=== PATIENT | female | born 1980 | race Caucasian/White ===

== ENCOUNTER 2020-06-24 12:02 | Observation (INO) | payer OTHER ==
[~2020-06-24] VITALS: Ht 162.6 cm; Wt 61.2 kg
[2020-06-24 13:08] LABS: BASOPHILS % 0.4 % (0.0-1.0); EOSINOPHILS % 0.4 % (0.0-6.0); HEMATOCRIT 37.7 % (34.2-44.1); HEMOGLOBIN 12.6 g/dL (12.0-16.0); LYMPHOCYTES # (AUTO) 3.1 (1.0-3.2); LYMPHOCYTES % 27.7 % (18.0-39.1); MEAN CORPUSCULAR HEMOGLOBIN 26.9 pg (28-32); MEAN CORPUSCULAR HGB CONC 33.4 g/dL (31-35); MEAN CORPUSCULAR VOLUME 80.6 fL (81-99); MONOCYTES # (AUTO) 0.6 (0.2-0.8); MONOCYTES % 5.4 % (4.4-11.3); NEUTROPHILS # (AUTO) 7.4 (2.1-6.9); NEUTROPHILS % 65.7 % (38.7-80.0); PLATELET COUNT 251 x10e3/uL (140-360); RED BLOOD COUNT 4.68 x10e6/uL (3.6-5.1); RED CELL DISTRIBUTION WIDTH 13.7 % (11.7-14.4)
[2020-06-24 13:27] LABS: ALBUMIN 4.7 g/dL (3.5-5.0); ALBUMIN/GLOBULIN RATIO 1.7 (0.8-2.0); ALKALINE PHOSPHATASE 61 IU/L (40-150); ANION GAP 16.4 mmol/L (8-16); BLOOD UREA NITROGEN 10 mg/dL (7-26); BUN/CREATININE RATIO 12 (6-25); CARBON DIOXIDE 21 mmol/L (22-29); CHLORIDE 103 mmol/L (98-107); CREATININE, SERUM 0.86 mg/dL (0.57-1.11); EST GLOMERULAR FILTRATION RATE > 60 ML/MIN (60-); GLUCOSE 87 mg/dL (74-118); POTASSIUM 3.4 mmol/L (3.5-5.1); SODIUM 137 mmol/L (136-145)
[2020-06-24 13:29] LABS: ALANINE AMINOTRANSFERASE < 6 IU/L (0-55)
--- NOTE | 2020-06-24 14:09 | Diagnostic Imaging Report ---
Exam: Head CT without contrast History: Left-sided neck and arm pain. Comparison studies: None Technique: Axial images were obtained from the skull base to the vertex. Coronal and sagittal images reconstructed from the axial data. Dose modulation, iterative reconstruction, and/or weight based adjustment of the mA/kV was utilized to reduce the radiation dose to as low as reasonably achievable. Radiation dose: Total DLP: 1060 1. mGy*cm. Estimated effective dose: DLP x 0.015 Intravenous contrast: None Findings: Scalp: No abnormalities. Bones: No fractures, blastic or lytic lesions. Brain sulci: Appropriate for age. Ventricles: Normal in size and configuration. No hydrocephalus. Extra-axial spaces: No masses, no fluid collection. Parenchyma: No mass, acute hemorrhage or acute cortical insult. Small chronic insults are present in the right cerebellum. Sellar/suprasellar region: No abnormalities. Craniocervical junction: Patent foramen magnum. No Chiari one malformation. IMPRESSION: 1. No acute intracranial abnormalities. 2. Small chronic right cerebellar insults. Signed by: Dr. Raoul Finch M.D. on 06/24/2020 2:06 PM
--- NOTE | 2020-06-24 14:20 | Diagnostic Imaging Report ---
History: Left-sided neck and arm pain Comparison studies: None Technique: Axial, coronal and sagittal images from the skull base to the thoracic inlet. Coronal and sagittal images reconstructed from the axial data. Dose modulation, iterative reconstruction, and/or weight based adjustment of the mA/kV was utilized to reduce the radiation dose to as low as reasonably achievable. Intravenous contrast: 100 cc of Isovue-370. Findings: Soft tissues: Mild nonspecific fat-stranding present in the left upper back/lower neck superficial to the left trapezius muscle. No mass or fluid collection. Upper aerodigestive tract: No abnormalities. Specifically, no mass or fluid collection. Lymph nodes: No radiographically significant adenopathy. Vessels: Arteries and veins are patent. Glands (parotid and submandibular): Normal in size and symmetric. No masses. Thyroid gland: Subcentimeter left inferior thyroid lobe nodule or cyst for which no further workup is necessary per current JACR recommendations for incidental thyroid nodules. No other abnormalities. Nasal sinuses: Clear aside from a mild mucosal thickening within a nondominant right sphenoid sinus. Orbits: No abnormalities. Temporal bones: No gross abnormalities. Skull base and facial bones: Intact. Cervical spine: Mildly degenerated C5-C6 disc. Moderate foraminal stenosis on the right at C3-C4 due to uncovertebral arthrosis and severe right facet arthrosis. Incidental findings: Multiple absent teeth with multiple dental caries and multifocal periodontal disease. IMPRESSION: 1. Mild reactive changes in the superficial subcutaneous soft tissues in the left upper back/lower neck which may reflect cellulitis in the appropriate clinical context. No mass or abscess. 2. No other acute abnormalities. Signed by: Dr. Raoul Finch M.D. on 06/24/2020 2:17 PM
[2020-06-24] MEDS ORDERED: ONDANSETRON HCL INJ 2MG/ML 2ML 2 MG/ML VIAL IV STA (14:56)
[2020-06-24] MEDS ORDERED: MORPHINE SULFATE INJ 4 MG/ML INJ 1ML IV PRN (15:00)
[2020-06-24] MEDS ORDERED: CEFEPIME 1GM/NS 0.9% 50 ML 50 ML IV STA (15:15)
[2020-06-24 15:16] LABS: BILIRUBIN,URINE NEGATIVE (NEGATIVE); CLARITY,URINE HAZY (CLEAR); COLOR,URINE YELLOW (YELLOW); KETONES,URINE NEGATIVE (NEGATIVE); LEUKOCYTE ESTERASE ,URINE SMALL (NEGATIVE); NITRITE,URINE POSITIVE (NEGATIVE); PREGNANCY TEST, URINE NEGATIVE (NEGATIVE); PROTEIN,URINE DIPSTICK NEGATIVE (NEGATIVE); URINE UROBILINOGEN 0.2 mg/dL (0.2 - 1)
[2020-06-24 15:24] LABS: BACTERIA,URINE MANY /HPF; EPITHELIAL CELLS,URINE MODERATE /LPF; RENAL EPITHELIAL CELLS,URINE RARE
--- OUTSIDE RECORDS SUMMARY | 2020-06-24 15:25 | XMS REPORT | Continuity of Care Document ---
Author Author [facility] t Organization [facility] Address [address] [place] [address] Phone Unavailable Care Team Providers Care Station Engineer Name Role Phone Marlene Lemus MD PCP Ranjit RAMIREZ Attphys Unavailable Doctor Unassigned, Name No Attphys Unavailable Problems This patient has no known problems. Allergies, Adverse Reactions, Alerts Allergy Name Allergy Type Status Severity Reaction(s) Onset Date Inacti ve Date Treating Clinician Comments Source Sumatriptan Succinate Propensity to adverse reactions to drug Active 2018-05-06 00:00:00 Tom Meth odist Dalton Propensity to adverse reactions to drug Active 2018-05-06 00:00:00 Tom sanchez Social History Social Habit Start Date Stop Date Quantity Comments Source Sex Assigned At [facility] Alcohol intake 2019 00:00:00 2019 00:00:00 Current non-drinker of alcohol (finding) Tom Austin Smoking Status Start Date Stop Date Source Never smoker Tom sanchez Medications Ordered Medication Name Filled Medication Name Start Date Stop Da te Current Medication? Ordering Clinician Indication Dosage Frequency Signature (SIG) Comments Components Source meloxicam (MOBIC) 15 mg tablet 2018-05-06 00:00:00 Yes 15mg Q24H Take 1 tablet (15 mg total) by mouth daily as needed for mild pain for up to 10 doses. Tom Austin GABAPENTIN ORAL 2017-10-24 14:17:41 Yes Take by mouth. Tom Austin LITHIUM CITRATE ORAL 2017-10-24 14:17:41 Yes Take by mouth. Tom Austin AMITRIPTYLINE HCL (AMITRIPTYLINE ORAL) 2017-07-17 17:35:13 Yes Take by mouth. Tom Austin TRAMADOL HCL (TRAMADOL ORAL) 2017-07-17 17:35:13 Yes Take by mouth. Tom Austin bzauptybrv-pxllooqkrcnrf-jout (ESGIC) 50-325-40 mg per table t 2017-07-17 00:00:00 Yes 1{tbl} Q4H Take 1 tab let by mouth every 4 (four) hours as needed for headaches for up to 15 doses. Tom Austin metoclopramide (REGLAN) 5 MG tablet 2017-07-17 00:00:00 Yes 5mg Q6H Take 1 tablet (5 mg total) by mouth every 6 (six) hours as needed (Nausea/vomiting) for up to 15 doses. Tom Austin Procedures This patient has no known procedures. Plan of Care Planned Activity Planned Date Details Comments Source Future Scheduled Test 2020-07-22 00:00:00 INFLUENZA VACCINE [code = INFLUENZA VACCINE] Tom Austin Future Scheduled Test 2000-01-21 00:00:00 Screening for contreras gnant neoplasm of cervix (procedure) [code = 827770913] Tom sanchez Encounters Start Date/Time End Date/Time Encounter Type Admission Type [facility] Care Department Encounter ID Source 2020-06-14 00:00:00 2020-06-14 00:00:00 Refill Doctor Unassigned, [place] [facility] [id number] Results Test Description Test Time Test Comments Results Result Comments Source CT SOFT TISSUE NECK W 2020-06-24 14:07:00 [facility] [address] [place], [place] [address] Patient Name: MARLENE ALMANZA MR #: [id number] : 1980 Age/Sex: 40/F Req #: [id number] Adm Physician: Ordered by: FLOYD RAMIREZ DO Report #: [id number] Location: ER Room/Bed: Procedure: [id number] CT/CT SOFT TISSUE NECK W Exam Date: 06/24/20 Exam Time: 1340 REPORT STATUS: Signed History: Left-sided neck and arm pain Comparison studies: None Technique: Axial, coronal and sagittal images from the skull base to the thoracic inlet. Coronal and sagittal images reconstructed from the axial data. Dose modulation, iterative reconstruction, and/or weight based adjustment of the mA/kV was utilized to reduce the radiation dose to as low as reasonably achievable. Intravenous contrast: 100 cc of Isovue-370. Findings: Soft tissues: Mild nonspecific fat- stranding present in the left upper back/lower neck superficial to the left trapezius muscle. No mass or fluid collection. Upper aerodigestive tract: No abnormalities. Specifically, no mass or fluid collection. Lymph nodes: No radiographically significant adenopathy. Vessels: Arteries and veins are patent. Glands (parotid and submandibular): Normal in size and symmetric. No masses. Thyroid gland: Subcentimeter left inferior thyroid lobe nodule or cyst for which no further workup is necessary per current JACR recommendations for incidental thyroid nodules. No other abnormalities. Nasal sinuses: Clear aside from a mild mucosal thickening within a nondominant right sphenoid sinus. Orbits: No abnormalities. Temporal bones: No gross abnormalities. Skull base and facial bones: Intact. Cervical spine: Mildly degenerated C5-C6 disc. Moderate foraminal stenosis on the right at C3-C4 due to uncovertebral arthrosis and severe right facet arthrosis. Incidental findings: Multiple absent teeth with multiple dental caries and multifocal periodontal disease. IMPRESSION: 1. Mild reactive changes in the superficial subcutaneous soft tissues in the left upper back/lower neck which may reflect cellulitis in the appropriate clinical context. No mass or abscess. 2. No other acute abnormalities. Signed by: Dr. Demetris Finch M.D. on 06/24/2020 2:17 PM Dictated By: DEMETRIS FINCH MD 16 Transcribed By: JAYESH on 06/24/201416 COPY TO: FLOYD RAMIREZ DO CT BRAIN WO 2020-06-24 14:01:00 [facility] [address] [place] [address] Patient Name: MARLENE ALMANZA MR #: [id number] : 1980 Age/Sex: 40/F Req #: [id number] Adm Physician: Ordered by: FLOYD RAMIREZ DO Report #: [id number] Location: ER Room/Bed: Procedure: [id number] CT/CT BRAIN WO Exam Date: 06/24/20 Exam Time: 1340 REPORT STATUS: Signed Exam: Head CT without contrast History: Left- sided neck and arm pain. Comparison studies: None Technique: Axial images were obtained from the skull base to the vertex. Coronal and sagittal images reconstructed from the axial data. Dose modulation, iterative reconstruction, and/or weight based adjustment of the mA/kV was utilized to reduce the radiation dose to as low as reasonably achievable. Radiation dose: Total DLP: 1060 1. mGy*cm. Estimated effective dose: DLP x 0.015 Intravenous contrast: None Findings: Scalp: No abnormalities. Bones: No fractures, blastic or lytic lesions. Brain sulci: Appropriate for age. Ventricles: Normal in size and configuration. No hydrocephalus. Extra-axial spaces: No masses, no fluid collection. Parenchyma: No mass, acute hemorrhage or acute cortical insult. Small chronic insults are present in the right cerebellum. Sellar/suprasellar region: No abnormalities. Craniocervical junction: Patent foramen magnum. No Chiari one malformation. IMPRESSION: 1. No acute intracranial abnormalities. 2. Small chronic right cerebellar insults. Signed by: Dr. Demetris Finch M.D. on 06/24/2020 2:06 PM Dictated By: DEMETRIS FINCH MD 05 Transcribed By: JAYESH on 06/24/201405 COPY TO: FLOYD RAMIREZ DO
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
--- NOTE | 2020-06-24 15:37 | Emergency Department Note ---
History of Present Illnes History of Present Illness Chief Complaint: General Medicine Complaints History of Present Illness This is a 40 year old female arrived to the ED with complaints of pain over posterior right neck down her arm. Chief Complaint Comment X 4 DAYS, CONTINUOUS BURNING PAIN TO LEFT SIDE BASE OF HEAD, UPPER LEFT BACK AND DOWN ENTIRE ARM SCHEDULED WITH FOR FULL BODY SCAN ON Jun.29 AND THE WITH NEUROLOGIST Historian: Patient Arrival Mode: Car Additional Treatment PBX SUPERVISOR: NONE Onset (how long ago): day(s) Radiation: Reports non-radiation Severity: mild Onset quality: gradual Duration (how long): day(s) Timing of current episode: constant Progression: worsening Chronicity: new Relieving factors: none Past Medical/Family History Physician Review I have reviewed the patient's past medical and family history. Any updates have been documented here. Past Medical History Recent Fever: No Clinical Suspicion of Infectio: No New/Unexplained Change in Ment: No Past Medical History: COPD, Anxiety Other Medical History: MIGRAINES SCHIZOPHRENIA AGROPHOBIA POST TRAUMATIC STRESS BIPOLAR BORDERLINE PERSONALITY Past Surgical History: Tubal Ligation Other Surgery: OVARIAN CYST SX Social History Smoking Cessation: Current some day smoker Counseling Performed: No Alcohol Use: Occasional Any Illegal Drug Use: No Physically hurt or threatened: No Other Any Pre-Existing Lines (PICC,: No Review of Systems Review of Systems Constitutional: Reports no symptoms EENTM: Reports no symptoms Cardiovascular: Reports no symptoms Respiratory: Reports no symptoms Gastrointestinal: Reports no symptoms Genitourinary: Reports no symptoms Musculoskeletal: Reports as per HPI, Reports muscle pain, Reports muscle stiffness Integumentary: Reports no symptoms Neurological: Reports no symptoms Psychological: Reports no symptoms Endocrine: Reports no symptoms Hematological/Lymphatic: Reports no symptoms Physical Exam Related Data Allergies: Coded Allergies: benzocaine (Verified Allergy, Unknown, 06/24/20) camphor (Verified Allergy, Unknown, 06/24/20) menthol (Verified Allergy, Unknown, 06/24/20) petrolatum,white (Verified Allergy, Unknown, 06/24/20) phenol (Verified Allergy, Unknown, 06/24/20) phenol liquid (Verified Allergy, Unknown, 06/24/20) pramoxine (Verified Allergy, Unknown, 06/24/20) strawberry (Verified Allergy, Unknown, 06/24/20) sumatriptan (Verified Allergy, Unknown, 06/24/20) Triage Vital Signs Vital Signs Date Time Temp Pulse Resp B/P (MAP) Pulse Ox O2 Delivery O2 Flow Rate FiO2 06/24/20 12:12 98.1 99 18 144/86 99 Room Air Vital signs reviewed: Yes Physical Exam CONSTITUTIONAL Constitutional: Present well-developed, Present well-nourished HENT HENT: Present normocephalic, Present atraumatic, Present oropharynx c lear/moist, Present nose normal HENT L/R: Present left ext ear normal, Present right ext ear normal EYES Eyes: Reports PERRL, Reports conjunctivae normal NECK Neck: Present ROM normal PULMONARY Pulmonary: Present effort normal, Present breath sounds normal CARDIOVASCULAR Cardiovascular: Present regular rhythm, Present heart sounds normal, Present capillary refill normal, Present normal rate GASTROINTESTINAL Abdominal: Present soft, Present nontender, Present bowel sounds normal GENITOURINARY Genitourinary: Present exam deferred SKIN Skin: Present other (+tenderness over scapula, raised, ?abscess) MUSCULOSKELETAL Musculoskeletal: Present ROM normal NEUROLOGICAL Neurological: Present alert, Present oriented x 3, Present no gross motor or sensory deficits PSYCHOLOGICAL Psychological: Present mood/affect normal, Present judgement normal Results Laboratory Result Diagram: 06/24/20 1250 06/24/20 1250 Laboratory Laboratory Tests Test 06/24/20 14:54 06/24/20 12:50 Urine Color Yellow (YELLOW) Urine Clarity Hazy (CLEAR) Urine pH 7 (5 - 7) Urine Specific [place] 1.015 (1.010-1.025) Urine Protein Negative (NEGATIVE) Urine Glucose (UA) Negative (NEGATIVE) Urine Ketones Negative (NEGATIVE) Urine Blood Trace (NEGATIVE) Urine Nitrite Positive (NEGATIVE) Urine Bilirubin Negative (NEGATIVE) Urine Urobilinogen 0.2 mg/dL (0.2 - 1) Urine Leukocyte Esterase Small (NEGATIVE) Urine RBC 6-10 /HPF (0-5) Urine WBC 6-10 /HPF (0-5) Urine Epithelial Cells Moderate /LPF (NONE) Urine Renal Epithelial Cells Rare (NONE) Urine Bacteria Many /HPF (NONE) Urine Test Negative (NEGATIVE) White Blood Count 11.21 x10e3/uL (4.8-10.8) Red Blood Count 4.68 x10e6/uL (3.6-5.1) Hemoglobin 12.6 g/dL (12.0-16.0) Hematocrit 37.7 % (34.2-44.1) Mean Corpuscular Volume 80.6 fL (81-99) Mean Corpuscular Hemoglobin 26.9 pg (28-32) Mean Corpuscular Hemoglobin Concent 33.4 g/dL (31-35) Red Cell Distribution Width 13.7 % (11.7-14.4) Platelet Count 251 x10e3/uL (140-360) Neutrophils (%) (Auto) 65.7 % (38.7-80.0) Lymphocytes (%) (Auto) 27.7 % (18.0-39.1) Monocytes (%) (Auto) 5.4 % (4.4-11.3) Eosinophils (%) (Auto) 0.4 % (0.0-6.0) Basophils (%) (Auto) 0.4 % (0.0-1.0) Neutrophils # (Auto) 7.4 (2.1-6.9) Lymphocytes # (Auto) 3.1 (1.0-3.2) Monocytes # (Auto) 0.6 (0.2-0.8) Eosinophils # (Auto) 0.0 (0.0-0.4) Basophils # (Auto) 0.0 (0.0-0.1) Absolute Immature Granulocyte (auto 0.05 x10e3/uL (0-0.1) Sodium Level 137 mmol/L (136-145) Potassium Level 3.4 mmol/L (3.5-5.1) Chloride Level 103 mmol/L (98-107) Carbon Dioxide Level 21 mmol/L (22-29) Anion Gap 16.4 mmol/L (8-16) Blood Urea Nitrogen 10 mg/dL (7-26) Creatinine 0.86 mg/dL (0.57-1.11) Estimat Glomerular Filtration Rate > 60 ML/MIN (60-) BUN/Creatinine Ratio 12 (6-25) Glucose Level 87 mg/dL (74-118) Calcium Level 9.0 mg/dL (8.4-10.2) Total Bilirubin 0.4 mg/dL (0.2-1.2) Aspartate Amino Transf (AST/SGOT) 20 IU/L (5-34) Alanine Aminotransferase (ALT/SGPT) < 6 IU/L (0-55) Alkaline Phosphatase 61 IU/L (40-150) Total Protein 7.4 g/dL (6.5-8.1) Albumin 4.7 g/dL (3.5-5.0) Globulin 2.7 g/dL (2.3-3.5) Albumin/Globulin Ratio 1.7 (0.8-2.0) Lab results reviewed: Yes Imaging Imaging results reviewed: Yes Impressions IMPRESSION: 1. Mild reactive changes in the superficial subcutaneous soft tissues in the left upper back/lower neck which may reflect cellulitis in the appropriate clinical context. No mass or abscess. 2. No other acute abnormalities. Signed by: Dr. Raoul Finch M.D. on 06/24/2020 2:17 PM Assessment & Plan Medical Decision Making MDM 40 yo F arrived to the ED with complaints of posterior neck pain, concerns of abscess noted on exam. CT Soft tissue neck done which was concerning for cellulitis. Pt admitted for IV antibiotics. Assessment & Plan Final Impression: (1) Cellulitis Depart Disposition: ADMITTED Last Vital Signs Date Time Temp Pulse Resp B/P (MAP) Pulse Ox O2 Delivery O2 Flow Rate FiO2 06/24/20 13:18 98.0 96 15 134/83 100 Room Air Medications in the ED Morphine Sulfate 4 mg ONCE PRN IV SEVERE PAIN (7-10); Start 06/24/20 at 15:00; Stop 07/01/20 at 14:59 Ondansetron HCl 4 mg NOW STAT IV ; Start 06/24/20 at 14:56; Stop 06/24/20 at 14:59; Status DC Cefepime HCl 50 ml @ 100 mls/hr Q24H STAT IV ; Start 06/24/20 at 15:15; Stop 06/24/20 at 15:44 FLOYD RAMIREZ, Jun 24, 2020 15:38
[2020-06-24 15:52] LABS: CREATINE KINASE MB 3.3 ng/mL (0-5.0)
[2020-06-24] MEDS ORDERED: VANCOMYCIN 1GM/NS 250 ML 250 ML IV ONE (16:00)
[2020-06-24] MEDS ORDERED: DIPHENHYDRAMINE HCL INJ 50 MG/ML VIAL ONE (16:19)
[2020-06-24 16:31] LABS: AMPHETAMINES SCREEN,URINE POSITIVE (NEGATIVE); BENZODIAZEPINES SCREEN,URINE POSITIVE (NEGATIVE); PHENCYCLIDINE SCREEN,URINE NEGATIVE (NEGATIVE)
[2020-06-24] MEDS ORDERED: CLINDAMYCIN HC300 MG PO (16:35)
== END 2020-06-24 16:36 | disposition home or self-care (01) ==
LOC: ER 12:39 → ERHOLD 15:15
PROVIDERS: ADMIT Family Medicine; ATTEND Family Medicine
DX: L03.221 Cellulitis of neck (principal); Z11.59 Encounter for screening for other viral diseases; F20.9 Schizophrenia, unspecified; J44.9 Chronic obstructive pulmonary disease, unspecified; F40.00 Agoraphobia, unspecified; F43.10 Post-traumatic stress disorder, unspecified; F60.3 Borderline personality disorder
CPT/HCPCS: 36415; 70450; 70491; 80053; 80307; 81001; 81025; 82550; 82553; 84484; 85025; 99284; G0378; J0692; J1200; J2270; J2405; J3370